=== PATIENT | female | born 2000 | race Caucasian/White ===

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

== ENCOUNTER → 2022-03-05 | Outpatient (REF) | payer OTHER | LOC: M LAB REF 15:58 | PROVIDERS: ATTEND Internal Medicine | DX: J02.9 Acute pharyngitis, unspecified (principal) ==

== ENCOUNTER 2025-06-02 12:54 | Emergency (ER) | payer OTHER ==
[~2025-06-02] VITALS: Ht 165.1 cm; Wt 50.4 kg
[~2025-06-02 12:54] MED LIST changes: -ASPE16CR TOP; +DICY-61 PO; -DICY10CA13 PO; +LIDO1ADH93 TOP; -LIDO5DIS41 TOP; +LIDO76.52 TOP; +ONDA-282 PO; -ONDA4TAB6 PO
[2025-06-02 12:58] VITALS: BP 112/73; TEMP 96.8; O2SAT 100
== END 2025-06-02 13:35 | disposition left against medical advice (07) ==
LOC: M ED 12:54
DX: Z53.21 Procedure and treatment not carried out due to patient leaving prior to being seen by health care provider (principal)

== ENCOUNTER → 2025-07-11 | Outpatient (CLI) | payer OTHER ==
[2025-07-11 13:11] LABS: PLATELET COUNT, AUTOMATED 330 10^3/uL (150-450)
[2025-07-11 14:05] LABS: HIV 1&2 SCREEN NEGATIVE (NEGATIVE)
[2025-07-11 14:09] LABS: Trichomonas vaginalis (AMP) NOT DETECTED (NEGATIVE)
[2025-07-11 14:13] LABS: HEPATITIS C VIRUS ABY INDEX < 0.02 INDEX (<0.8)
[2025-07-11 14:32] LABS: GC DNA AMPLIFICATION NEGATIVE (NEGATIVE)
== END ==
LOC: M LAB 12:21
PROVIDERS: ATTEND Nurse Practitioner Family
DX: Z34.80 Encounter for supervision of other normal pregnancy, unspecified trimester (principal)

== ENCOUNTER → 2025-07-12 | Outpatient (CLI) | payer OTHER | LOC: M LAB 11:39 | PROVIDERS: ATTEND Nurse Practitioner Family | DX: Z34.80 Encounter for supervision of other normal pregnancy, unspecified trimester (principal) ==

== ENCOUNTER 2025-08-17 06:04 | Emergency (ER) | payer OTHER ==
[~2025-08-17] VITALS: Ht 162.6 cm; Wt 45.9 kg
[2025-08-17 06:17] VITALS: BP 122/70; TEMP 98.3
[2025-08-17 06:42] VITALS: O2SAT 97
[2025-08-17 06:57] LABS: BASO # 0.0 10^3/uL (0.0-0.2); BASO % 0.2 % (0.0-1.0); EOS # 0.0 10^3/uL (0.0-0.5); EOS % 0.0 % (0.0-3.0); LYMPH # 1.9 10^3/uL (1.5-5.0); LYMPH % 10.5 % (24.0-44.0); MONO # 1.0 10^3/uL (0.0-0.8); MONO % 5.4 % (2.0-8.0); NEUTROPHILS # 14.7 10^3/uL (1.5-8.5); NEUTROPHILS % 83.2 % (36.0-66.0); PLATELET COUNT, AUTOMATED 409 10^3/uL (150-450)
[2025-08-17 07:29] LABS: CALCIUM LEVEL 9.1 MG/DL (8.5-10.1); CARBON DIOXIDE LEVEL 23 MMOL/L (20-31); CHLORIDE LEVEL 102 MMOL/L (98-107); CREATININE FOR GFR 0.56 MG/DL (0.55-1.30); GLOMERULAR FILTRATION RATE > 90.0 (>60); POTASSIUM SERUM 4.0 MMOL/L (3.5-5.1); SODIUM LEVEL 135 MMOL/L (136-145)
[2025-08-17 07:46] LABS: HCG, SERUM QUANTITATIVE 34773.5 MIU/ML (<4.2)
== END 2025-08-17 09:10 | disposition left against medical advice (07) ==
LOC: M ED 06:04
DX: Z53.21 Procedure and treatment not carried out due to patient leaving prior to being seen by health care provider (principal)

== ENCOUNTER → 2025-11-07 | Outpatient (CLI) | payer OTHER, MEDICAID | LOC: M WHC 08:40 | PROVIDERS: ATTEND Nurse Practitioner Family | DX: Z34.80 Encounter for supervision of other normal pregnancy, unspecified trimester (principal) ==